=== PATIENT | female | born 1955 | race Caucasian/White ===

== ENCOUNTER → 2018-01-10 12:40 | Outpatient (CLI) | payer BC ==
[~2018-01-10 12:40] MED LIST: CIPRO500 MG PO; HYDROCODONE-APA1 TAB PO; NORCO-5 PO; PRAVACHOL40 MG PO
[2018-02-09 18:48] VITALS: BMI 23.0
== END | disposition home or self-care (01) ==
LOC: D.MAMMO 01-06 14:30 → D.US 01-06 15:00 → D.MAMMO 08:30 → D.US 01-24 15:30
DX: N64.4 Mastodynia (principal); R22.9 Localized swelling, mass and lump, unspecified

== ENCOUNTER 2018-02-09 11:08 | Inpatient (IN) | payer BC ==
[~2018-02-09] VITALS: Ht 170.2 cm; Wt 66.8 kg
--- NOTE | ~2018-02-09 | OP ---
PATIENT NAME: NANCY MORALES MEDICAL RECORD: [id number] :59 LOCATION:[id number] ADMISSION DATE:02/09/18 SURGEON: ROMMEL ACEVEDO MD DATE OF OPERATION: 02/10/2018 PREOPERATIVE DIAGNOSIS: Symptomatic gallstones. POSTOPERATIVE DIAGNOSES: Symptomatic gallstones with hepatomegaly. PROCEDURES: 1. Laparoscopic cholecystectomy. 2. Intraoperative cholangiography without immediate surgeon interpretation. 3. A 14-gauge core needle liver biopsy. SURGEON: Rommel Acevedo MD CLOTH BOOKER: JAZZMINE Angeles BLOOD LOSS: Minimal. ANESTHESIA: General. COMPLICATIONS: None. DRAINS: None. POSTOPERATIVE DIAGNOSIS: Visually significant laparoscopic cholecystectomy female for a need of stones or hydronephrosis. The risks, possible complications, and alternatives to the procedure were explained to the patient. She elected to proceed. OPERATIVE COURSE: The patient was conveyed to the operating room electively on 02/10/2018. General anesthesia was induced by the anesthesia staff. The abdomen was sterilely prepped and draped. A small skin aravind was accomplished in the left upper quadrant. A Veress needle was inserted through the skin aravind into the peritoneal cavity. CO2 insufflation was begun. Once a sufficient pneumoperitoneum had been achieved, a 5-mm trocar was inserted through an incision in the right upper quadrant. Under direct internal vision utilizing a television camera, a 12-mm trocar was inserted through an incision at the umbilicus. Two more trocars were inserted. A 5-mm trocar was inserted in the epigastrium. Another 5-mm trocar was inserted far laterally in the right upper quadrant. During insertion of the Veress needle and all trocars, there appeared to have been no injury to the bowels, any intraperitoneal or retroperitoneal structures. The indication for the liver biopsy was hepatomegaly. Under laparoscopic guidance, I percutaneously accessed the right upper quadrant utilizing an 14-gauge core needle liver biopsy device. Cores were obtained over the convexity of the liver. The biopsy sites were made hemostatic with electrocautery. I then advanced the cholangiogram trocar. I punctured the fundus of the gallbladder. I aspirated bile. I then injected dye. Static fluoroscopic images were obtained. These cholangiographic images are sent to the radiologist for interpretation. OPERATIVE REPORT [id number] NANCY MORALES I withdrew the cholangiogram trocar. The gallbladder was grasped and retracted cephalad. The infundibulum was grasped and retracted laterally. Critical view of the triangle of Calot was visualized. Blunt dissection was begun on the triangle of Calot. One cystic artery and one cystic duct were identified. These were clipped multiply and divided between clips. The gallbladder was then excised from its bed and the liver. It was placed within an Endobag retrieval device and was withdrawn through the umbilical fascia defect. The 12-mm trocars were placed and the abdomen reinsufflated. I irrigated and aspirated in the right upper quadrant. There was no bleeding even at low pressure of 8. The Manjit-Tamera suture closure device and 0 Vicryl sutures were used to close the umbilical fascia. All the trocars were removed and the abdomen desufflated. The incision at the umbilicus was closed with interrupted 4-0 Vicryl Rapide sutures. The other skin incisions were closed with interrupted intracuticular 3-0 Vicryls. Benzoin and Steri-Strips were applied. The patient was then extubated and conveyed to post-anesthesia care unit where she was in stable condition. TRANSINT:[id number] Voice Confirmation ID: [id number] DOCUMENT ID: [id number] ROMMEL ACEVEDO MD at 1126 CC: SUGAR GRIFFITHS [id number] DICTATION DATE: 02/10/18 1410 LANCE CREWMEMBER: 02/10/18 1555 DIS IN 02/11/[address] [facility] [address] [place] [address]
[2018-02-09 12:06] LABS: BASOPHILS 0.1 % (0-2); EOSINOPHILS 0 % (0-7); HEMATOCRIT 41.8 % (36.0-48.0); HEMOGLOBIN 14.5 g/dL (12-16); IMMATURE GRANULOCYTES 0.2 % (0-5); LYMPHOCYTES 6.6 % (15-50); MCH 31.3 pg (26.0-34.0); MCHC 34.7 g/dL (31.0-37.0); MCV 90.1 fL (80.0-100.0); MEAN PLATELET VOLUME 9.5 fL (7.4-10.4); MONOCYTES 1.7 % (2-11); NEUTROPHILS 91.4 % (40-80); PLATELET COUNT 258 10x3/uL (130-400); RBC 4.64 10x6/uL (4.00-5.40); RDW 12.7 % (11.5-14.5); WBC 16.5 10x3/uL (4.8-10.8)
[2018-02-09 12:19] LABS: INR 0.92 (0.85-1.17)
[2018-02-09 12:24] LABS: ALBUMIN 4.3 g/dL (3.4-5.0); ALKALINE PHOSPHATASE 128 U/L (46-116); ALT (SGPT) 22 U/L (10-68); BILIRUBIN - TOTAL 0.54 mg/dL (0.2-1.3); CALC OSMOLALITY 284 mosm/kg (275-300); CALCIUM 9.9 mg/dL (8.5-10.1); CARBON DIOXIDE 23.7 mmol/L (21.0-32.0); CHLORIDE - SERUM 106 mmol/L (98-107); CREATININE - SERUM 0.7 mg/dL (0.6-1.3); GLUCOSE 136 mg/dL (74-106); SODIUM 142 mmol/L (136-145); UREA NITROGEN 12 mg/dL (7-18); eGFR NON AFRICAN AMERICAN 90 mL/min (90-120)
[2018-02-09 12:29] LABS: AMYLASE - SERUM 42 U/L (25-115); CREATINE KINASE 205 UL (21-215); LIPASE 160 U/L (73-393); PRO BNP 50 pg/mL (0-125)
[2018-02-09 12:30] LABS: TROPONIN-I < 0.017 ng/mL (0.000-0.060)
[2018-02-09 15:24] LABS: APPEARANCE CLEAR (CLEAR); BILIRUBIN NEGATIVE (NEGATIVE); COLOR YELLOW (YELLOW); GLUCOSE 50 mg/dL (NEGATIVE); KETONE SMALL mg/dL (NEGATIVE); NITRITE NEGATIVE (NEGATIVE); PROTEIN NEGATIVE (NEGATIVE); UROBILINOGEN NORMAL (NORMAL)
[2018-02-09] MEDS ORDERED: PRAVACHOL40 MG PO (16:10)
[2018-02-09 16:13] VITALS: BP 100/52; BMI 23.0
[2018-02-09 18:48] VITALS: Ht 170.2 cm; Wt 66.8 kg
[2018-02-09 20:00] VITALS: BP 114/54
[2018-02-10 04:00] VITALS: BP 112/54
[2018-02-10 05:52] LABS: BASOPHILS 0.1 % (0-2); EOSINOPHILS 1.5 % (0-7); HEMATOCRIT 36.6 % (36.0-48.0); HEMOGLOBIN 12.1 g/dL (12-16); IMMATURE GRANULOCYTES 0.1 % (0-5); LYMPHOCYTES 23.7 % (15-50); MCH 30.3 pg (26.0-34.0); MCHC 33.1 g/dL (31.0-37.0); MCV 91.7 fL (80.0-100.0); MEAN PLATELET VOLUME 9.8 fL (7.4-10.4); MONOCYTES 7.7 % (2-11); NEUTROPHILS 66.9 % (40-80); PLATELET COUNT 238 10x3/uL (130-400); RBC 3.99 10x6/uL (4.00-5.40); RDW 13.2 % (11.5-14.5)
[2018-02-10 06:04] LABS: WBC 9.9 10x3/uL (4.8-10.8)
[2018-02-10 06:18] LABS: ANION GAP 10.3 mmol/L (8-16); BILIRUBIN - TOTAL 0.6 mg/dL (0.2-1.3); CALCIUM 8.5 mg/dL (8.5-10.1); CARBON DIOXIDE 26.6 mmol/L (21.0-32.0); POTASSIUM - SERUM 3.9 mmol/L (3.5-5.1); PROTEIN - SERUM 6.1 g/dL (6.4-8.2)
[2018-02-10 06:20] LABS: ALBUMIN 3.2 g/dL (3.4-5.0); CREATININE - SERUM 0.9 mg/dL (0.6-1.3)
[2018-02-10 08:35] VITALS: BP 108/59
[2018-02-10 12:49] VITALS: BP 126/63
[2018-02-10 15:44] VITALS: BP 121/61
[2018-02-10 19:42] VITALS: BP 108/60
[2018-02-11 04:30] VITALS: BP 118/59
[2018-02-11] MEDS ORDERED: HYDROCODONE-APA1 TAB PO (07:32)
[2018-02-11] MEDS ORDERED: NORCO-5 PO (07:32)
[2018-02-11] MEDS ORDERED: PRAVACHOL40 MG PO (07:32)
[2018-02-11] MEDS ORDERED: CIPRO500 MG PO (07:37)
[2018-02-11 08:44] VITALS: BP 125/68
== END 2018-02-11 09:30 | disposition home or self-care (01) | DRG 419 ==
LOC: D.ER 11:08 → D.MS 15:08
PROVIDERS: Family Medicine; Nurse Practitioner Family
PROC: 0FT44ZZ Resection of Gallbladder, Percutaneous Endoscopic Approach (ICD-10-PCS; principal; 2018-02-09)
PROC: BF121ZZ Fluoroscopy of Gallbladder using Low Osmolar Contrast (ICD-10-PCS; 2018-02-09)
PROC: 0FB03ZX Excision of Liver, Percutaneous Approach, Diagnostic (ICD-10-PCS; 2018-02-09)
DX: K80.00 Calculus of gallbladder with acute cholecystitis without obstruction (principal); G35 Multiple sclerosis; R16.0 Hepatomegaly, not elsewhere classified

== ENCOUNTER 2019-04-17 08:30 | Outpatient (CLI) | payer BC ==
[2018-02-09 18:48] VITALS: BMI 23.0
== END 2019-04-17 09:00 | disposition home or self-care (01) ==
LOC: D.MAMMO 08:30
PROVIDERS: ATTEND Nurse Practitioner
DX: Z12.31 Encounter for screening mammogram for malignant neoplasm of breast (principal)

== ENCOUNTER 2019-05-16 19:00 | Outpatient (CLI) | payer BC ==
[2018-02-09 18:48] VITALS: BMI 23.0
== END 2019-05-16 23:59 | disposition home or self-care (01) ==
LOC: D.MAMMO 19:00
PROVIDERS: ATTEND Nurse Practitioner
DX: R92.2 Inconclusive mammogram (principal)